=== PATIENT | male | born 1965 | race Native Hawaiian/Other Pacific Islander ===

== ENCOUNTER 2018-06-06 19:20 | Emergency (ER) | payer OTHER ==
[~2018-06-06] VITALS: Ht 170.2 cm; Wt 77.6 kg
[~2018-06-06 19:20] MED LIST: ADVIL200 M1 PO; ALTARUSSIN100 MG/5 M PO; AMANTADINE100 MG PO; AMLO2.5T PO; ARTIFICIAL TEAR1 OP; BENADRYL25 M1 PO; BENICAR20 MG PO; BENICAR40 MG PO; BISA5TAB65 PO; CYCL10TA35 PO; DOCU100C10 PO; GABA100C2 PO; GLUCAGEN1 MG IJ; GLUCOSE TABS; HALO50IN4 IM; HYDR1CRE2 EX; IBUP-97 PO; INDERAL PO; INSTA-GLUCOSE40 % PO; INSUINJ20 SC; INSUINJ47 SC; K-TAB20 MEQ PO; LAMICTAL200 MG PO; LEVEMIR SC; LEVO0.0723 PO; LEVO0.1T6 PO; LEXAPRO20 MG PO; LOSA50TA PO; NEURONTIN 100M100 MG PO; OMEPRAZOLE20 M1 PO; OXCARBAZEPIN300 MG PO; SAPHRIS10 MG SL; SIMV20TA2 PO; SOD CHLORIDE1 GM PO; TAMS0.4C PO; TIOTCAP2 INH; TRILEPTAL300 MG PO; UNITH DIRECT200 MCG PO; VENTOLIN HFA INH; VENTOLIN INH; ZANTAC300 MG PO
[2018-06-06 20:13] LABS: PLATELET COUNT 378 K/uL (142-355)
[2018-06-06 20:18] LABS: POTASSIUM 3.4 mmol/L (3.6-5.2)
[2018-06-06 21:30] VITALS: BP 132/17; TEMP 98
[2018-06-07] MEDS ORDERED: GERI-TUSSIN PO (01:27)
[2018-06-07] MEDS ORDERED: GLUCAGEN HYPOKIT1 MG IM (01:30)
[2018-06-07] MEDS ORDERED: PANTOPRAZOLE 40MG TA PO (01:34)
[2018-06-07] MEDS ORDERED: TYLENOL325 MG PO (01:36)
[2018-06-07] MEDS ORDERED: LIPITOR10 MG PO (01:37)
[2018-06-07] MEDS ORDERED: ALBUSOL INH (01:40)
[2018-06-07] MEDS ORDERED: INSUINJP SC (01:42)
[2018-06-07] MEDS ORDERED: AMLODIPINE BESYLATE PO (01:43)
[2018-06-07] MEDS ORDERED: INSUINJ47 SC (01:45)
== END 2018-06-06 21:32 | disposition other institution (70) ==
LOC: ED 19:20
PROVIDERS: Emergency Medicine
DX: F28 Other psychotic disorder not due to a substance or known physiological condition (principal); Z04.6 Encounter for general psychiatric examination, requested by authority
CPT/HCPCS: 36415; 80053; 81000; 85027; 93005; 99285

== ENCOUNTER 2020-11-17 16:01 | Emergency (ER) | payer OTHER ==
[~2020-11-17 16:01] MED LIST changes: +ALBUSOL INH; +AMLODIPINE BESYLATE PO; +DIPH25CA90 PO; +DIPH50IN IM; +GERI-TUSSIN PO; +GLUCAGEN HYPOKIT1 MG IM; +HALO5INJ3 IM; +HALO5TAB10 PO; +INSUINJP SC; +LIPITOR10 MG PO; +LORA2INJ21 IM; +PANTOPRAZOLE 40MG TA PO; +PRIM50TA4 PO; +TYLENOL325 MG PO
[2020-11-29 08:43] LABS: POTASSIUM 3.6 mmol/L (3.6-5.2)
[2020-11-29 08:44] LABS: PLATELET COUNT 520 K/uL (142-355)
[2020-12-03] MEDS ORDERED: AMANTADINE100 MG PO (09:27)
[2020-12-03] MEDS ORDERED: LEXAPRO20 MG PO (09:28)
[2020-12-03] MEDS ORDERED: HALO5TAB10 PO (09:29)
[2020-12-03] MEDS ORDERED: GABA100C2 PO (09:29)
[2020-12-03] MEDS ORDERED: INSUINJP SC (09:30)
[2020-12-03] MEDS ORDERED: LIPITOR10 MG PO (09:31)
[2020-12-03] MEDS ORDERED: LEVO0.1519 PO (09:33)
[2020-12-03] MEDS ORDERED: LOSA50TA PO (09:34)
[2020-12-03] MEDS ORDERED: PRIM50TA4 PO (09:34)
[2020-12-03] MEDS ORDERED: OXCARBAZEPIN300 MG PO (09:34)
[2020-12-03] MEDS ORDERED: SOD CHLORIDE1 GM PO (09:35)
[2020-12-03] MEDS ORDERED: TAMS0.4C PO (09:35)
[2020-12-03] MEDS ORDERED: METF500T PO (09:36)
[2020-12-03] MEDS ORDERED: TIOTCAP2 INH (09:36)
[2020-12-03] MEDS ORDERED: FURO20TA67 PO (09:37)
[2020-12-03] MEDS ORDERED: AMLO2.5T PO (09:37)
[2020-12-03] MEDS ORDERED: CLARITIN10 MG PO (09:37)
[2020-12-03] MEDS ORDERED: K-TAB20 MEQ PO (09:38)
[2020-12-03] MEDS ORDERED: FENOFIBRATE40 MG PO (09:39)
[2020-12-03] MEDS ORDERED: OLANZAPINE10 M2 PO (09:40)
[2020-12-03] MEDS ORDERED: ZINC220 M1 PO (09:42)
[2020-12-03] MEDS ORDERED: NOVOLIN R100 UNIT/1 IM (09:42)
== END 2020-11-17 19:10 | disposition other institution (70) ==
LOC: ED 16:01
PROVIDERS: Family Medicine
DX: U07.1 COVID-19 (principal); F22 Delusional disorders; Z04.6 Encounter for general psychiatric examination, requested by authority
CPT/HCPCS: 80053; 81000; 85027; 87635; 93005; 99283; U0003